=== PATIENT | male | born 1955 | race Caucasian/White ===

== ENCOUNTER 2018-06-18 22:24 | Inpatient (IN) ==
[2018-06-19] MEDS ORDERED: ONDANSETRON 4 MG/2 ML VIAL IV PRN (00:31)
[2018-06-19] MEDS ORDERED: ACETAMINOPHEN 325 MG TABLET PO PRN (00:31)
[2018-06-19] MEDS ORDERED: traMADol 50 MG TABLET PO PRN (00:31)
[2018-06-19 02:59] LABS: Basophils # 0.1 10*3/uL (0.0-0.2); Basophils % 1.3 % (0.0-0.8); Eosinophils # 0.1 10*3/uL (0.0-0.87); Hematocrit 45.7 VOL% (42.0-52.0); Hemoglobin 14.9 GM/DL (14.0-18.0); Immature Granulocytes % 0.2 %; Immature Granulocytes Absolute 0.01 #; Lymphocytes # 1.9 10*3/uL (1.4-4.0); Lymphocytes % 30.9 % (21.2-54.2); Mean Corpuscular HGB Conc 32.6 GM/DL (32-36); Mean Corpuscular Hemoglobin 30 PG (27-34); Mean Corpuscular Volume 92.3 FL (87-102); Mean Platelet Volume 13.6 FL (9.6-12.0); Monocytes # 0.3 10*3/uL (0.11-0.8); Monocytes % 4.8 % (1.7-12.7); Neutrophils # 3.7 10*3/uL (1.4-7.4); Neutrophils % 60.8 % (38.7-73.9); Platelet Count 146 T/CUMM (130-400); Red Blood Count 4.95 MC/CUMM (3.8-5.5); White Blood Count 6.1 T/CUMM (4-12)
[2018-06-19 03:06] LABS: INR 1.1; PT Patient Result 11.5 SECS
[2018-06-19 03:38] LABS: Albumin 3.7 G/DL (3.4-5.0); Calcium 9.7 MG/DL (8.5-10.1); Potassium 3.7 MMOL/L (3.5-5.1); Risk Ratio 3.31; Total Protein 6.3 G/DL (6.4-8.3); VLDL CHOLESTEROL 16.2 MG/DL
[2018-06-19] MEDS: ENOXAPARIN 40 MG/0.4 ML SYRINGE SUBCUT SCH (08:59)
[2018-06-19 10:16] LABS: Amorphous Crystals,Urine Occasional /HPF (Few); Apearance,Urine Slightly Hazy (Clear); Bilirubin,Urine Negative (Negative); Blood, Urine Negative (Negative); Glucose,Urine (UA) Negative (Negative); Ketones,Urine Negative (Negative); Mucus,Urine Occasional /LPF (Occasional); Nitrite,Urine Negative (Negative); Protein,Urine Negative; RBC,Urine 1 /HPF (0-4); Urine Color Yellow (Yellow); Urine Urobilinogen < 2.0 EU/DL (0.2-1.0); WBC,Urine 3 /HPF (0-6)
[2018-06-19] MEDS ORDERED: REGADENOSON 0.4 MG/5 ML SYRINGE IV ONE (12:27)
[2018-06-19] MEDS ORDERED: diphenhydrAMINE CAP 25 MG CAPSULE PO ONE (14:22)
[2018-06-19] MEDS ORDERED: MAGNESIUM SULF RIDER 2 GM in PREMIX 1 EACH IV PRN (14:22)
[2018-06-19] MEDS ORDERED: DIAZEPAM 5 MG TABLET PO ONE (14:22)
[2018-06-19] MEDS ORDERED: POTASSIUM CHLORIDE RIDER 10 MEQ in PREMIX 1 EACH IV PRN (14:22)
[2018-06-19] MEDS ORDERED: ASPIRIN 325 MG TABLET PO ONE (14:22)
[2018-06-19] MEDS: SODIUM CHLORIDE 0.45% 1,000 ML IV SCH (14:39)
[2018-06-19] MEDS ORDERED: HYDROmorphone 2 MG/1 ML VIAL ONE (14:47)
[2018-06-19] MEDS ORDERED: NITROGLYCERIN DRIP 50 MG/250 ML BOTTLE IV ONE (14:47)
[2018-06-19] MEDS ORDERED: VERAPAMIL 5 MG/2 ML VIAL ONE (14:47)
[2018-06-19] MEDS ORDERED: MIDAZOLAM 2 MG/2 ML VIAL ONE (14:47)
[2018-06-19] MEDS ORDERED: LIDOCAINE 1% 20 ML VIAL ONE (14:47)
[2018-06-19] MEDS ORDERED: ENOXAPARIN 60 MG/0.6 ML SYRINGE ONE (15:04)
[2018-06-19] MEDS ORDERED: ceFAZolin 1,000 MG in SYRINGE 1 EACH IV ONE (16:35)
[2018-06-19] MEDS ORDERED: ceFAZolin 1,000 MG VIAL IRRIG ONE (16:35)
[2018-06-19] MEDS ORDERED: SODIUM CHLORIDE 0.9% 1,000 ML IV SCH (17:00)
[2018-06-20 05:33] LABS: Basophils # 0.1 10*3/uL (0.0-0.2); Basophils % 1.1 % (0.0-0.8); Eosinophils # 0.2 10*3/uL (0.0-0.87); Eosinophils % 3.1 % (0.00-10.9); Hematocrit 45.6 VOL% (42.0-52.0); Hemoglobin 14.7 GM/DL (14.0-18.0); Immature Granulocytes % 0.2 %; Immature Granulocytes Absolute 0.01 #; Lymphocytes # 2.3 10*3/uL (1.4-4.0); Lymphocytes % 36.3 % (21.2-54.2); Mean Corpuscular HGB Conc 32.2 GM/DL (32-36); Mean Corpuscular Hemoglobin 30 PG (27-34); Mean Corpuscular Volume 92.9 FL (87-102); Mean Platelet Volume 13.5 FL (9.6-12.0); Monocytes # 0.4 10*3/uL (0.11-0.8); Monocytes % 6.5 % (1.7-12.7); Neutrophils # 3.3 10*3/uL (1.4-7.4); Neutrophils % 52.8 % (38.7-73.9); Platelet Count 134 T/CUMM (130-400); Red Blood Count 4.91 MC/CUMM (3.8-5.5); Red Cell Distribution Width 14.3 % (9.3-17.3); White Blood Count 6.2 T/CUMM (4-12)
[2018-06-20 05:44] LABS: Calcium 8.9 MG/DL (8.5-10.1); Osmolality,Calculated 280.3 MOS/KG (273-304); Potassium 3.8 MMOL/L (3.5-5.1)
[2018-06-20] MEDS ORDERED: MIDAZOLAM 2 MG/2 ML VIAL ONE (06:53)
[2018-06-20] MEDS ORDERED: LIDOCAINE 1% 20 ML VIAL ONE (06:53)
[2018-06-20] MEDS ORDERED: HEPARIN/NACL 0.9% 2 UNITS/ML 500 ML IV ONE (06:53)
[2018-06-20] MEDS ORDERED: TISSUE ADHESIVE 1 EACH APPLICATOR TOP ONE (06:54)
[2018-06-20] MEDS ORDERED: ceFAZolin 1,000 MG VIAL ONE (06:54)
[2018-06-20] MEDS ORDERED: fentaNYL 100 MCG/2 ML VIAL ONE (06:54)
[2018-06-20] MEDS: SODIUM CHLORIDE 0.45% 1,000 ML IV SCH ×2 (07:50→17:36)
[2018-06-20] MEDS: SODIUM CHLORIDE 0.9% 1,000 ML IV SCH ×2 (07:51→17:36)
[2018-06-20] MEDS: ENOXAPARIN 40 MG/0.4 ML SYRINGE SUBCUT SCH (09:09)
[2018-06-20] MEDS ORDERED: MORPHINE 4 MG/1 ML VIAL IV PRN (11:40)
[2018-06-20] MEDS: ACETAMINOPHEN/CODEINE 300-30 MG TABLET PO PRN ×3 (11:41→21:10)
[2018-06-20] MEDS: ceFAZolin 1,000 MG in SYRINGE 1 EACH IV SCH ×2 (15:53→21:07)
[2018-06-21 05:02] LABS: Basophils # 0.1 10*3/uL (0.0-0.2); Basophils % 0.7 % (0.0-0.8); Eosinophils # 0.2 10*3/uL (0.0-0.87); Eosinophils % 2.9 % (0.00-10.9); Hematocrit 45.8 VOL% (42.0-52.0); Hemoglobin 14.4 GM/DL (14.0-18.0); Immature Granulocytes % 0.3 %; Immature Granulocytes Absolute 0.02 #; Lymphocytes # 1.9 10*3/uL (1.4-4.0); Mean Corpuscular HGB Conc 31.4 GM/DL (32-36); Mean Corpuscular Hemoglobin 30 PG (27-34); Monocytes # 0.5 10*3/uL (0.11-0.8); Monocytes % 7.6 % (1.7-12.7); Neutrophils # 4.3 10*3/uL (1.4-7.4); Neutrophils % 61.5 % (38.7-73.9); Platelet Count 121 T/CUMM (130-400); Red Blood Count 4.82 MC/CUMM (3.8-5.5); Red Cell Distribution Width 14.2 % (9.3-17.3)
[2018-06-21 05:14] LABS: Calcium 9.1 MG/DL (8.5-10.1); Osmolality,Calculated 280.3 MOS/KG (273-304); Potassium 3.9 MMOL/L (3.5-5.1)
[2018-06-21] MEDS: SODIUM CHLORIDE 0.45% 1,000 ML IV SCH ×2 (06:00→19:17)
[2018-06-21] MEDS: ACETAMINOPHEN/CODEINE 300-30 MG TABLET PO PRN ×3 (07:09→20:27)
[2018-06-21] MEDS: ENOXAPARIN 40 MG/0.4 ML SYRINGE SUBCUT SCH (08:31)
[2018-06-21] MEDS: CALCIUM CARBONATE CHEW 500 MG TABLET PO PRN ×2 (14:57→23:15)
[2018-06-21] MEDS: SODIUM CHLORIDE 0.9% 1,000 ML IV SCH (16:44)
[2018-06-22] MEDS: ENOXAPARIN 40 MG/0.4 ML SYRINGE SUBCUT SCH (09:17)
[2018-06-22] MEDS: SODIUM CHLORIDE 0.45% 1,000 ML IV SCH (09:19)
[2018-06-22 12:27] VITALS: BP 121/73
[2018-06-22] MEDS: SODIUM CHLORIDE 0.9% 1,000 ML IV SCH (17:28)
== END 2018-06-22 17:24 | disposition home or self-care (01) | DRG 244 ==
LOC: N.TELES → SUATTDRO 06-19 00:33
PROVIDERS: ADMIT Internal Medicine; ATTEND Internal Medicine
PROC: CLCCHCL (ICD-10-PCS; 2018-06-19 15:15)